=== PATIENT | male | born 1965 | race Caucasian/White ===

== ENCOUNTER 2017-10-04 12:05 | Day surgery (SDC) | payer BC, OTHER ==
[~2017-10-04] VITALS: Ht 177.8 cm; Wt 120.9 kg
[~2017-10-04 12:05] MED LIST: ABAT250V; ALBU3IS INH; ASPI81CH PO; CLON.5 PO; ESOM20 PO; HYDCHL12.5 PO; LISI20 PO; SALM50IP PO; SIMV10 PO; Simvastatin20 MG PO; Ventolin/Prove6.7 GM
[2017-10-04] MEDS ORDERED: SERT50 PO (12:59)
[2017-10-04] MEDS ORDERED: HYDCHL12.5 PO (12:59)
== END 2017-10-04 15:36 | disposition home or self-care (01) ==
LOC: ORSCSDS 12:05
PROVIDERS: Orthopaedic Surgery
PROC: 01N50ZZ Release Median Nerve, Open Approach (ICD-10-PCS; principal; 2017-10-04 13:15)
DX: G56.01 Carpal tunnel syndrome, right upper limb (principal); I10 Essential (primary) hypertension; G47.33 Obstructive sleep apnea (adult) (pediatric); E78.5 Hyperlipidemia, unspecified; K21.9 Gastro-esophageal reflux disease without esophagitis; F41.9 Anxiety disorder, unspecified; Z87.891 Personal history of nicotine dependence; Z79.899 Other long term (current) drug therapy
CPT/HCPCS: J0690; J1885; J2250; J7120

== ENCOUNTER 2017-11-25 06:05 | Day surgery (SDC) | payer BC, OTHER ==
[~2017-11-25] VITALS: Ht 177.8 cm; Wt 116.2 kg
[~2017-11-25 06:05] MED LIST changes: +SERT50 PO
== END 2017-11-25 08:32 | disposition home or self-care (01) ==
LOC: ORSCSDS 06:05
PROVIDERS: Orthopaedic Surgery
PROC: 01N50ZZ Release Median Nerve, Open Approach (ICD-10-PCS; principal; 2017-11-25 07:30)
DX: G56.02 Carpal tunnel syndrome, left upper limb (principal); I10 Essential (primary) hypertension; Z79.899 Other long term (current) drug therapy; E66.01 Morbid (severe) obesity due to excess calories; Z68.36 Body mass index [BMI] 36.0-36.9, adult; F17.210 Nicotine dependence, cigarettes, uncomplicated
CPT/HCPCS: J0690; J2250; J3010; J7120